=== PATIENT | male | born 1995 | race Caucasian/White ===

== ENCOUNTER 2016-12-02 11:08 | Emergency (ER) | payer SELFPAY ==
[2016-12-02 12:59] LABS: Basophils % (Auto) 0.4 % (0.0-1.8); Eosinophils % (Auto) 0.6 % (0.0-4.3); Hematocrit 45.2 % (35.5-45.6); Hemoglobin 15.2 gm/dl (11.8-15.2); Mean Corpuscular HGB Conc 34 % (32-34); Mean Corpuscular Hemoglobin 30 pg (28-32); Mean Corpuscular Volume 89 fl (84-94); Platelet Count 250 K/mm3 (140-440); Red Blood Count 5.09 M/mm3 (3.65-5.03); Red Cell Distribution Width 13.8 % (13.2-15.2); White Blood Count 12.6 K/mm3 (4.5-11.0)
[2016-12-02 13:15] LABS: Alanine Aminotransferase 17 units/L (7-56); Albumin 4.4 g/dL (3.9-5); Albumin/Globulin Ratio 1.1 %; Alkaline Phosphatase 73 units/L (35-129); Anion Gap 21 mmol/L; BUN/Creatinine Ratio 15.55; Blood Urea Nitrogen 14 mg/dL (9-20); Calcium 9.3 mg/dL (8.4-10.2); Carbon Dioxide 20 mmol/L (22-30); Chloride 98.5 mmol/L (98-107); Glucose 107 mg/dL (75-100); Potassium 3.7 mmol/L (3.6-5.0); Sodium 136 mmol/L (137-145); Total Protein 8.3 g/dL (6.3-8.2)
[2016-12-02 13:18] LABS: Bilirubin,Direct < 0.2 mg/dL (0-0.2)
[2016-12-02] MEDS ORDERED: NACL 0.9% 1000 ML 1,000 ML IV ONE (14:01)
[2016-12-02 15:10] LABS: Urine Drugs of Abuse Note Disclamer
[2016-12-02 15:21] LABS: Bilirubin,Urine NEG (Negative); Blood,Urine NEG (Negative); Ketones,Urine TR mg/dL (Negative); Leukocyte Esterase,Urine LG (Negative); Mucus,Urine FEW /HPF; Nitrite,Urine NEG (Negative); Urobilinogen,Urine < 2.0 mg/dL (<2.0)
[2016-12-02 16:12] VITALS: BP 134/101
--- NOTE | 2016-12-02 16:55 | Cat Scan Report ---
CRANIAL CT SCAN: History: Altered mental status. Findings: Serial contiguous axial images were obtained through the cranium. Intravenous contrast material was not administered. The ventricles are normal in size and appearance. There is no mass effect or midline shift. No areas of abnormally increased or decreased attenuation are seen. No mass lesion is seen. The mastoid air cells and visualized portions of the sinuses are normal. IMPRESSION: Cranial CT scan within normal limits.
--- NOTE | 2016-12-02 19:49 | Emergency Department Report ---
ED Altered Mental Status HPI - General Chief Complaint: Altered Mental Status Stated Complaint: AMS Time Seen by Provider: 12/02/16 12:49 Source: patient Mode of arrival: Stretcher Limitations: Language Barrier - History of Present Illness Initial Comments: PATIENT BROUGHT TO ER AFTER BEING FOUND WANDERING THE STREET AND ACTING STRANGE. PATIENT ADMITTED TO USING METH AND COCAINE TODAY. NO OTHER COMPLAINTS. Complaint: intoxication -: Sudden Severity: severe Consistency of Symptoms: constant Context: drug abuse Associated Symptoms: denies other symptoms Treatments Prior to Arrival: oxygen - Related Data Allergies Allergy/AdvReac Type Severity Reaction Status Date / Time Unable to Assess Allergy Unverified 12/02/16 12:27 ED Review of Systems ROS: Stated complaint: AMS Other details as noted in HPI Comment: All other systems reviewed and negative Constitutional: weakness Psychiatric: anxiety ED Past Medical Hx - Past Medical History Previous Medical History?: No - Surgical History Past Surgical History?: Yes Additional Surgical History: right upper arm - Social History Smoking Status: Current Every Day Smoker Substance Use Type: Other ED Physical Exam - General Limitations: Language Barrier General appearance: alert, in no apparent distress - Head Head exam: Present: atraumatic - Eye Eye exam: Present: normal appearance Pupils: Present: normal accommodation - ENT ENT exam: Present: normal exam - Neck Neck exam: Present: normal inspection - Respiratory Respiratory exam: Present: normal lung sounds bilaterally - Cardiovascular Cardiovascular Exam: Present: regular rate, normal rhythm - GI/Abdominal GI/Abdominal exam: Present: soft, distended - Psychiatric Psychiatric exam: Present: agitated, anxious - Skin Skin exam: Present: warm, dry ED Course Vital Signs 12/02/16 12/02/16 12/02/16 11:47 11:51 12:00 Temperature Pulse Rate 88 87 92 H Respiratory 19 11 L 29 H Rate Blood Pressure 134/80 132/88 Blood Pressure [Left] O2 Sat by Pulse 99 100 Oximetry 12/02/16 12/02/16 12/02/16 12:07 12:11 12:21 Temperature 98 F Pulse Rate 93 H 88 86 Respiratory 22 13 11 L Rate Blood Pressure 134/80 132/88 135/97 Blood Pressure 134/80 [Left] O2 Sat by Pulse 100 100 99 Oximetry 12/02/16 12/02/16 12/02/16 12:30 12:41 12:51 Temperature Pulse Rate 90 94 H 84 Respiratory 10 L 31 H 18 Rate Blood Pressure 141/94 141/94 141/94 Blood Pressure [Left] O2 Sat by Pulse 100 100 100 Oximetry 12/02/16 12/02/16 12/02/16 13:01 13:11 13:21 Temperature Pulse Rate 93 H 84 80 Respiratory 22 20 16 Rate Blood Pressure 141/94 141/94 114/82 Blood Pressure [Left] O2 Sat by Pulse 99 100 99 Oximetry 12/02/16 12/02/16 12/02/16 13:31 13:41 13:51 Temperature Pulse Rate 84 81 87 Respiratory 18 19 13 Rate Blood Pressure 114/82 114/82 133/88 Blood Pressure [Left] O2 Sat by Pulse 100 99 99 Oximetry 12/02/16 12/02/16 12/02/16 14:00 14:10 14:21 Temperature Pulse Rate 97 H 101 H 90 Respiratory 19 19 19 Rate Blood Pressure 133/91 133/91 120/50 Blood Pressure [Left] O2 Sat by Pulse 100 99 100 Oximetry 12/02/16 12/02/16 12/02/16 14:31 14:41 14:51 Temperature Pulse Rate 89 98 H Respiratory 30 H 20 Rate Blood Pressure 133/91 133/91 129/95 Blood Pressure [Left] O2 Sat by Pulse 100 100 100 Oximetry 12/02/16 12/02/16 12/02/16 15:00 15:11 15:21 Temperature Pulse Rate 84 82 88 Respiratory 15 13 26 H Rate Blood Pressure 135/99 135/99 137/100 Blood Pressure [Left] O2 Sat by Pulse 100 100 100 Oximetry 12/02/16 12/02/16 12/02/16 15:30 15:41 15:51 Temperature Pulse Rate 78 88 86 Respiratory 10 L 19 19 Rate Blood Pressure 135/102 137/100 145/102 Blood Pressure [Left] O2 Sat by Pulse 100 100 100 Oximetry 12/02/16 16:00 Temperature Pulse Rate 83 Respiratory 16 Rate Blood Pressure 134/101 Blood Pressure [Left] O2 Sat by Pulse 100 Oximetry - Reevaluation(s) Reevaluation #1: 12/02/16 19:48 AT 1930, PATIENT IS ACTING APPROPRIATE, STATES HIS RIDE IS COMING TO PICK HIM UP IN 10 MINS, WANTS TO LEAVE TO GO SMOKE, ADVISED TO WAIT ON RIDE, BEFORE LEAVING ROOM. - Lab Data Result diagrams: 12/02/16 12:42 12/02/16 12:42 Lab Results 12/02/16 12/02/16 12/02/16 Range/Units 12:42 12:42 12:42 WBC 12.6 H (4.5-11.0) K/mm3 RBC 5.09 H (3.65-5.03) M/mm3 Hgb 15.2 (11.8-15.2) gm/dl Hct 45.2 (35.5-45.6) % MCV 89 (84-94) fl MCH 30 (28-32) pg MCHC 34 (32-34) % RDW 13.8 (13.2-15.2) % Plt Count 250 (140-440) K/mm3 Lymph % (Auto) 18.2 (13.4-35.0) % Grant % (Auto) 8.6 H (0.0-7.3) % Eos % (Auto) 0.6 (0.0-4.3) % Baso % (Auto) 0.4 (0.0-1.8) % Lymph # 2.3 (1.2-5.4) K/mm3 Grant # 1.1 H (0.0-0.8) K/mm3 Eos # 0.1 (0.0-0.4) K/mm3 Baso # 0.1 (0.0-0.1) K/mm3 Seg Neutrophils % 72.2 H (40.0-70.0) % Seg Neutrophils # 9.1 H (1.8-7.7) K/mm3 Sodium 136 L (137-145) mmol/L Potassium 3.7 (3.6-5.0) mmol/L Chloride 98.5 (98-107) mmol/L Carbon Dioxide 20 L (22-30) mmol/L Anion Gap 21 mmol/L BUN 14 (9-20) mg/dL Creatinine 0.9 (0.8-1.5) mg/dL Estimated GFR > 60 ml/min BUN/Creatinine Ratio 15.55 % Glucose 107 H (75-100) mg/dL Lactic Acid 0.90 (0.7-2.0) mmol/L Calcium 9.3 (8.4-10.2) mg/dL Total Bilirubin 0.90 (0.1-1.2) mg/dL Direct Bilirubin < 0.2 (0-0.2) mg/dL AST 21 (5-40) units/L ALT 17 (7-56) units/L Alkaline Phosphatase 73 (35-129) units/L Total Protein 8.3 H (6.3-8.2) g/dL Albumin 4.4 (3.9-5) g/dL Albumin/Globulin Ratio 1.1 % Urine Color (Yellow) Urine Turbidity (Clear) Urine pH (5.0-7.0) Ur Specific [place] (1.003-1.030) Urine Protein (Negative) mg/dL Urine Glucose (UA) (Negative) mg/dL Urine Ketones (Negative) mg/dL Urine Blood (Negative) Urine Nitrite (Negative) Urine Bilirubin (Negative) Urine Urobilinogen (<2.0) mg/dL Ur Leukocyte Esterase (Negative) Urine WBC (Auto) (0.0-6.0) /HPF Urine RBC (Auto) (0.0-6.0) /HPF Urine Mucus /HPF Urine Opiates Screen Urine Methadone Screen Ur Barbiturates Screen Ur Phencyclidine Scrn Ur Amphetamines Screen U Benzodiazepines Scrn Urine Cocaine Screen U Marijuana (THC) Screen Drugs of Abuse Note 12/02/16 12/02/16 Range/Units 14:50 14:50 WBC (4.5-11.0) K/mm3 RBC (3.65-5.03) M/mm3 Hgb (11.8-15.2) gm/dl Hct (35.5-45.6) % MCV (84-94) fl MCH (28-32) pg MCHC (32-34) % RDW (13.2-15.2) % Plt Count (140-440) K/mm3 Lymph % (Auto) (13.4-35.0) % Grant % (Auto) (0.0-7.3) % Eos % (Auto) (0.0-4.3) % Baso % (Auto) (0.0-1.8) % Lymph # (1.2-5.4) K/mm3 Grant # (0.0-0.8) K/mm3 Eos # (0.0-0.4) K/mm3 Baso # (0.0-0.1) K/mm3 Seg Neutrophils % (40.0-70.0) % Seg Neutrophils # (1.8-7.7) K/mm3 Sodium (137-145) mmol/L Potassium (3.6-5.0) mmol/L Chloride (98-107) mmol/L Carbon Dioxide (22-30) mmol/L Anion Gap mmol/L BUN (9-20) mg/dL Creatinine (0.8-1.5) mg/dL Estimated GFR ml/min BUN/Creatinine Ratio % Glucose (75-100) mg/dL Lactic Acid (0.7-2.0) mmol/L Calcium (8.4-10.2) mg/dL Total Bilirubin (0.1-1.2) mg/dL Direct Bilirubin (0-0.2) mg/dL AST (5-40) units/L ALT (7-56) units/L Alkaline Phosphatase (35-129) units/L Total Protein (6.3-8.2) g/dL Albumin (3.9-5) g/dL Albumin/Globulin Ratio % Urine Color Yellow (Yellow) Urine Turbidity Slightly-cloudy (Clear) Urine pH 6.0 (5.0-7.0) Ur Specific [place] 1.020 (1.003-1.030) Urine Protein 30 mg/dl (Negative) mg/dL Urine Glucose (UA) Neg (Negative) mg/dL Urine Ketones Tr (Negative) mg/dL Urine Blood Neg (Negative) Urine Nitrite Neg (Negative) Urine Bilirubin Neg (Negative) Urine Urobilinogen < 2.0 (<2.0) mg/dL Ur Leukocyte Esterase Lg (Negative) Urine WBC (Auto) 141.0 H (0.0-6.0) /HPF Urine RBC (Auto) 10.0 (0.0-6.0) /HPF Urine Mucus Few /HPF Urine Opiates Screen Presumptive negative Urine Methadone Screen Presumptive negative Ur Barbiturates Screen Presumptive negative Ur Phencyclidine Scrn Presumptive negative Ur Amphetamines Screen Presumptive positive U Benzodiazepines Scrn Presumptive negative Urine Cocaine Screen Presumptive positive U Marijuana (THC) Screen Presumptive negative Drugs of Abuse Note Disclamer Critical care attestation.: If time is entered above; I have spent that time in minutes in the direct care of this critically ill patient, excluding procedure time. ED Disposition Clinical Impression: Cocaine intoxication delirium Disposition: DC-01 TO HOME OR SELFCARE Is pt being admited?: No Does the pt Need Aspirin: No Condition: Stable Instructions: Cocaine Abuse (ED), Methamphetamine Abuse (ED) Referrals: PRIMARY CARE, [Primary Care Provider] - 3-5 Days Print Language: [id number]
== END 2016-12-03 07:25 | disposition home or self-care (01) ==
LOC: EEVIPCON 11:08 → ED 11:08
DX: F14.121 Cocaine abuse with intoxication with delirium (principal); F17.210 Nicotine dependence, cigarettes, uncomplicated; F41.9 Anxiety disorder, unspecified
CPT/HCPCS: 36415; 70450; 80053; 80074; 80307; 81001; 82140; 85025; 96360; 99285; J7030